=== PATIENT | female | born 2000 | race Two or more races ===

== ENCOUNTER 2023-05-19 22:01 | Emergency (ER) | payer BC ==
[2023-05-19] MEDS ORDERED: diphenhydrAMINE 25 MG CAP ONE (22:50)
[2023-05-19] MEDS ORDERED: Ondansetron ODT 4 MG TAB ONE (22:50)
[2023-05-19] MEDS ORDERED: Acetaminophen 500 MG TAB ONE (22:50)
[2023-05-19 22:55] LABS: Influenza A by NAA Not Detected (NotDetected); Influenza B by NAA Not Detected (NotDetected); SARS-CoV-2 NAA Rapid Test Not Detected (NotDetected)
[2023-05-19 23:27] LABS: Bacteria/HPF None Seen HPF (None Seen); Bilirubin Negative (Negative); Blood, Urine 3+ (Negative); CAUTI Indications for Culture Fever or rigors; Clarity Extra Turbid (Clear); Glucose, Urine (Dipstick) Normal (Negative); Ketone, Urine Negative (Negative); Leukocyte Negative Leu/uL (Negative); Nitrite Negative (Negative); Protein, Urine (Dipstick) 20 mg/dL (Neg-Trace); RBC/HPF Greater than 50 HPF (0-3); Squamous Epithelial 0-3 HPF (0-3); Urobilinogen Normal mg/dL (Less than 2); WBC/HPF 0-3 HPF (0-3)
[2023-05-19 23:29] LABS: Pregnancy Test - Urine (BHCG) Negative (Negative); Pregu Control Background? CLEAR/WHITE (CLR/WHITE); Pregu Control Bar Appear? YES (CONTROL BAR)
[2023-05-19 23:30] LABS: Urine Culture Reflex No No
== END 2023-05-19 23:43 | disposition home or self-care (01) ==
LOC: ERS 22:01
DX: R51.9 Headache, unspecified (principal); R53.81 Other malaise; R11.2 Nausea with vomiting, unspecified
CPT/HCPCS: 81001; 81025; 99284; Q0162